=== PATIENT | female | born 1995 | race African-American/Black ===

== ENCOUNTER 2017-02-26 19:36 | Emergency (ER) | payer OTHER ==
[~2017-02-26] VITALS: Ht 170.2 cm; Wt 57.8 kg
[2017-02-26 19:54] VITALS: BP 115/59
--- NOTE | 2017-02-26 20:05 | NUR ---
Patient to [facility].
--- NOTE | 2017-02-26 20:23 | NUR ---
LIAN Barber, evaluating patient.
[2017-02-26] MEDS ORDERED: CLINDAMYCIN 600 MG/4 ML VIAL IM ONE (20:30)
[2017-02-26] MEDS ORDERED: DEXAMETHASONE 10 MG/ML VIAL IM ONE (20:30)
--- NOTE | 2017-02-26 20:50 | NUR ---
PT BIB SELF C/O MOUTH IS NOT OPENING X 2MTHS. PT AAOX4. ER MD TO NAZIA, ALL ORDER EXECUTED. Pupils equal and reactive to light bilaterally. No facial droop noted. No smile deficit noted. Speech normal for patient. Patient is alert and oriented to person, place, time and event. 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 Bilateral foot push equal.
--- NOTE | 2017-02-26 20:54 | NUR ---
PT AAOX4, PERRJULIET, TALKING ON CELL PHONE WITH FAMILY. FULL A.R.O.M. TO MOUTH NOTED. GAIT-WNL. IM MEDS GIVEN-NADR AT THIS TIME.
[2017-02-26 21:13] VITALS: BP 112/61
--- NOTE | 2017-02-26 22:11 | NUR ---
Patient discharged with v/s stable. Written and verbal after care instructions given and explained. Patient alert, oriented and verbalized understanding of instructions. Ambulatory with steady gait. All questions addressed prior to discharge. ID band removed. Patient advised to follow up with PMD. Rx of PREDNISON 50MG, CLINDAMYCIN 300MG given. Patient educated on indication of medication including possible reaction and side effects. Opportunity to ask questions provided and answered.
== END 2017-02-26 22:11 | disposition home or self-care (01) ==
LOC: MED 19:36
DX: J02.9 Acute pharyngitis, unspecified (principal); J39.2 Other diseases of pharynx
CPT/HCPCS: 96372; 99284; J1100; J3490

== ENCOUNTER 2017-04-27 13:22 | Emergency (ER) | payer OTHER ==
[~2017-04-27] VITALS: Ht 170.2 cm; Wt 59.9 kg
[2017-04-27 13:41] VITALS: BP 96/62
--- NOTE | 2017-04-27 14:15 | NUR ---
PATIENT AMBULATED TO ER BED 8.
--- NOTE | 2017-04-27 14:16 | NUR ---
PATIENT PRESENTS TO ED WITH c/o constipation x 2 WEEKS;PT HAS abdominal discomfort attempted home made enema by mother, prune juice . PT STATES SHE ONLY GOT ABDOMINAL PAIN DURING NIGHT TIME;PER PT SHE IS BUT NOT SURE THE AGE OF GESTATION;DENIES N/V/D; SKIN IS PINK/WARM/DRY; AAOX4 WITH EVEN AND STEADY GAIT; LUNGS CLEAR BL; HR EVEN AND REGULAR; PT DENIES ANY FEVER, CP, SOB, OR COUGH AT THIS TIME; PATIENT STATES PAIN OF 0/10 AT THIS TIME; VSS; PATIENT POSITIONED FOR COMFORT; HOB ELEVATED; BEDRAILS UP X2; BED DOWN. ER MD MADE AWARE OF PT STATUS.
--- NOTE | 2017-04-27 15:01 | NUR ---
ULTRASOUND AT BEDSIDE.
[2017-04-27 15:06] LABS: BASOPHILS # (AUTO) 0.1 K/uL (0.00-0.22); BASOPHILS % (AUTO) 0.6 % (0.0-2.0); EOSINOPHILS # (AUTO) 0.2 K/uL (0-0.4); EOSINOPHILS % (AUTO) 1.7 % (0.0-4.0); HEMATOCRIT 34.5 % (36-48); HEMOGLOBIN 11.6 g/dL (12.0-16.0); LYMPHOCYTES # (AUTO) 1.8 K/uL (2.5-16.5); LYMPHOCYTES % (AUTO) 20.2 % (20.5-51.1); MEAN CORPUSCULAR HEMOGLOBIN 30 pg (27-31); MEAN CORPUSCULAR HGB CONC 34 g/dL (33-37); MEAN CORPUSCULAR VOLUME 89 fL (80-94); MONOCYTES # (AUTO) 0.5 K/uL (0.8-1.0); NEUTROPHILS # (AUTO) 6.3 K/uL (1.8-7.7); NEUTROPHILS % (AUTO) 71.5 % (42.2-75.2); PLATELET COUNT (AUTO) 199 K/uL (140-450); RED BLOOD CELL COUNT(AUTO) 3.87 MIL/uL (4.20-5.40); RED CELL DISTRIBUTION WIDTH 11.9 % (11.6-13.7); WHITE BLOOD COUNT (AUTO) 8.9 K/uL (4.8-10.8)
[2017-04-27 15:13] LABS: APPEARANCE,URINE HAZY (CLEAR); BILIRUBIN,URINE NEGATIVE (NEGATIVE); BLOOD, URINE NEGATIVE (NEGATIVE); COLOR,URINE YELLOW (YELLOW); LEUKOCYTE ESTERASE ,URINE TRACE (NEGATIVE); NITRITE, URINE NEGATIVE (NEGATIVE); PROTEIN,URINE TRACE (NEGATIVE); UGLUCOSE NEGATIVE (NEGATIVE); UROBILINOGEN,URINE 0.2 EU/dL (0.2 - 1)
[2017-04-27 15:15] LABS: ANION GAP 8.2 (8-16); CALCIUM 8.6 mg/dL (8.5-10.1); CARBON DIOXIDE 27.3 mmol/L (21-32); CREATININE 0.7 mg/dL (0.6-1.3); POTASSIUM 3.5 mmol/L (3.5-5.1)
[2017-04-27 15:16] LABS: BACTERIA,URINE 1-9 (FEW) /HPF (None Seen); RBC,URINE 0-5 (RARE) /HPF (0-5); SQUAMOUS EPITHELIAL CELL,UR >10 (MANY) /LPF (0-3 (FEW))
--- NOTE | 2017-04-27 15:35 | NUR ---
DR PALACIOS AT BEDSIDE.
[2017-04-27 15:54] VITALS: BP 113/65
--- NOTE | 2017-04-27 15:55 | NUR ---
Patient discharged with v/s stable. Written and verbal after care instructions given and explained. Patient alert, oriented and verbalized understanding of instructions. Ambulatory with steady gait. All questions addressed prior to discharge. ID band removed. Patient advised to follow up with PMD. Rx of macrobid and magnesium citrate low sodium solution given. Patient educated on indication of medication including possible reaction and side effects. Opportunity to ask questions provided and answered.
== END 2017-04-27 15:55 | disposition home or self-care (01) ==
LOC: MED 13:22
DX: O23.41 Unspecified infection of urinary tract in pregnancy, first trimester (principal); K59.00 Constipation, unspecified; Z3A.01 Less than 8 weeks gestation of pregnancy; Z88.8 Allergy status to other drugs, medicaments and biological substances
CPT/HCPCS: 36415; 76801; 80048; 81001; 81025; 84702; 85025; 86900; 86901; 87086; 99285; Q0092